=== PATIENT | female | born 1970 | race Two or more races ===

== ENCOUNTER 2024-07-29 15:12 | Emergency (ER) | payer MEDICAID, SELFPAY ==
[2024-07-29 15:15] VITALS: BP 195/101; PULSE 98; RESP 18; TEMP 36.8; O2SAT 98
--- NOTE | 2024-07-29 15:17 | XR_ITS ---
Examination: CT brain head without contrast. 2-D sagittal coronal reconstructions Date and time of exam:July 29, 2024 1838 hours INDICATIONS: Onset headaches today CTDI: vol (mGy):46.2 DLP: (mGycm):870 Technique: Multiple CT axial sections of the brain have been obtained, 5 mm slice thickness. Contrast has not been administered. 2-D sagittal, coronal reconstructions have been obtained Low dose protocols were performed. One or more of the following dose reduction techniques were used; automated exposure control, adjustment of the mA and/or KV according to patient size, use of iterative reconstruction technique. Findings: No significant ventricular enlargement. Intra-axial or extra-axial hemorrhage density is not seen. No mass effect or midline shift Basal cisterns are not remarkable. Fourth ventricle is midline. Cranial vault intact. Impression: Negative for acute hemorrhage, mass effect or midline shift Advise clinical correlation follow-up accordingly
--- NOTE | 2024-07-29 15:18 | PD.EDADULT ---
ED General RME/HPI General Chief complaint: Headache Stated complaint: HEADACHE Time Seen by Provider: 07/29/24 15:17 Arrival date/time: 07/29/24 15:12 CC: Headache HPI patient presents the ER via EMS from the urgent care center with a headache that is in the back of her head rating down the back of her neck. Patient denies fever nausea vomiting chest pain shortness of breath difficulty breathing. EMS reports stable vital signs. Related Data Previous Rx's ?Medication ?Instructions ?Recorded naproxen 500 mg tablet 500 mg PO BID PRN pain #30 tabs 06/06/23 ondansetron 4 mg disintegrating 4 mg PO Q8H PRN nausea and 06/06/23 tablet vomiting #30 tabs cyclobenzaprine 10 mg tablet 10 mg PO HS #10 tabs 07/29/24 Allergies Allergy/AdvReac Type Severity Reaction Status Date / Time No Known Allergies Allergy Verified 06/06/23 02:12 Past Medical History Social History SMOKING STATUS: Never smoker ED Exam Narrative Physical exam: [General: Mild discomfort but not in any acute distress Head normocephalic HEENT: Eyes pupils are PERRLA EOMs intact no nystagmus mouth pink moist membranes uvula is midline tongue is not deviated swallow symmetrical phonation is normal. Nose: No rhinorrhea epistaxis. All other subsystems of HEENT are within acceptable limits Neck is supple, no tenderness to palpation, good rotation flexion and extension. Chest equal chest rise nontender to palpation Respiratory: Clear to auscultation no wheezes crackles or rubs CV: Rate rhythm is regular no murmurs rubs or clicks Abdomen is soft nontender no masses positive bowel sounds all 4 quadrants Back: No CVA tenderness no spinous process tenderness from cervical spine thoracic and lumbar spine Skin: Intact no petechiae rash induration ulceration or crepitus Extremities: Moving all extremity against resistance cap refill less than 2 seconds neurosensory intact Neuro: Awake alert oriented x3 Glascow coma 15 no focal deficits] cranial nerves II through XII are grossly intact. Course Quality Measures none Orders Category Date Time Status CT head/brain wo con Stat Exams 07/29/24 15:17 Completed CBC Stat Lab 07/29/24 15:47 Completed Comprehensive Metabolic Panel Stat Lab 07/29/24 15:47 Completed Drug Screen,Urine Stat Lab 07/29/24 17:40 Completed LDH (Lactate Dehydrogenase) Stat Lab 07/29/24 15:47 Completed Magnesium Stat Lab 07/29/24 15:47 Completed Partial Thromboplastin Time Stat Lab 07/29/24 15:47 Completed Prothrombin Time with INR Stat Lab 07/29/24 15:47 Completed Urinalysis Stat Lab 07/29/24 17:40 Completed KCL 10% Liq UDC 15 ML Med 07/29/24 17:12 Discontinued 40 meq GT X1 ONE Ketorolac Inj [Toradol Inj] Med 07/29/24 18:54 Discontinued 15 mg IVP X1 ONE Vital Signs Vital signs: Vital Signs Temperature 98.3 F 07/29/24 15:15 Pulse Rate 98 07/29/24 15:15 Respiratory Rate 18 07/29/24 15:15 Blood Pressure 195/101 H 07/29/24 15:15 Pulse Oximetry (%) 98 07/29/24 15:15 Oxygen Delivery Method Room Air 07/29/24 15:15 [facility] Patient data External records reviewed:: [facility] previous records and EMS form Clinical information provided by:: patient and EMS Social determinants that could affect healthcare access:: none Patient has the following chronic illnesses:: None How is presenting disease/condition affected by chronic disease/condition?: uneffected by Evaluation data The following diagnostics were reviewed and interpreted by me:: lab results and radiology exam(s) Lab and/or radiology exams considered but not ordered:: CT of the head is negative as interpreted by me read by radiology CBC showed no acute leukocytosis anemia thrombocytopenia CMP shows no acute electrolyte imbalance or renal impairment transaminitis or T. bili elevation. Interpretation Summary: I suspect given the patient's clinical presentation and examination this is a tension headache patient is advised to follow-up with a primary care provider put the patient on muscle relaxants. Medications Medications considered but not ordered:: None Medication administrations:: Medication Administration History Discontinued Medications Ketorolac Tromethamine (Ketorolac Inj 30 Mg/Ml Vial) 15 mg IVP X1 ONE Stop: 07/29/24 18:55 Last Admin: 07/29/24 19:26 Dose: 15 mg Documented By: KG Potassium Chloride (Potassium Chloride 10% 20 Meq/15 Ml Udc) 40 meq GT X1 ONE Stop: 07/29/24 17:13 Last Admin: 07/29/24 17:31 Dose: 40 meq Documented By: ED None Consultations Consultation(s) initiated? (list below): No Diagnosis Differential Diagnosis ED Complaint MDM: Tension headache complex headache cluster headache Most likely diagnosis given after review of the tests above:: Tension headache Admission Indicated Admission indicated?: not indicated Explain why admission is indicated or not indicated:: Stable for outpatient follow-up Admission Request Was there a request for admission?: No Disposition Plan Disposition Plan: Discharge Discharge Attestation Discharge Attestation: The patient and all family members were given an opportunity to ask questions and understood the discharge instructions. Discharge instructions specifically effects, indications for sooner follow up or return to the emergency department, and the expected course of current diagnosis. Patient condition: Stable Medical Decision Making Differential Diagnosis Differential Diagnosis: Tension headache complex headache cluster headache Lab Data 07/29/24 15:47 07/29/24 15:47 Labs: Lab Results 07/29/24 07/29/24 Range/Units 15:47 17:40 WBC 8.1 (3.6-11.0) Thou/mm3 RBC 4.27 (4.00-5.20) Miln/mm3 Hgb 13.7 (12.0-16.0) g/dL Hct 38.5 (36.0-46.0) % MCV 90 (80-100) fL MCH 32.1 (25.0-35.0) pg MCHC 35.6 (31.0-37.0) g/dl RDW Std Deviation 40.9 (36.4-46.3) fL Plt Count 236 (140-440) Thou/mm3 Neut % (Auto) 54 (37-80) % Lymph % (Auto) 39 (10-50) % [place] % (Auto) 6 (0-12) % Eos % (Auto) 1 (0-10) % Baso % (Auto) 1 (0-2.5) % Neut # (Auto) 4.3 (1.8-7.7) Thou/mm3 Lymph # (Auto) 3.1 (1.0-4.8) Thou/mm3 [place] # (Auto) 0.5 (0.0-0.8) Thou/mm3 Eos # (Auto) 0.1 (0.0-0.5) Thou/mm3 Baso # (Auto) 0.1 (0.0-0.2) Thou/mm3 Immature Gran # (Auto) 0.02 H (0.00-0.00) Thou/mm3 Absolute Nucleated RBC 0.00 (0.00-0.00) Thou/mm3 Immature Gran % 0 (0-0) % Nucleated RBC % 0 (0) /100 WBC PT 10.9 (9.0-12.2) Seconds INR 1.0 (0.9-1.3) APTT 28.5 (22.0-36.0) Seconds Sodium 133 L (136-145) mMol/L Potassium 3.0 L (3.4-5.1) mMol/L Chloride 96 L (98-107) mMol/L Carbon Dioxide 28.7 (20.0-31.0) mMol/L Anion Gap 8 (7-16) BUN 7 L (9-23) mg/dL Creatinine 0.7 (0.6-1.3) mg/dL Estim Creat Clear Calc 83.5 (>60) mL/min eGFR > 60 (60 - ) See Note BUN/Creatinine Ratio 10 L (12-20) Ratio Glucose 109 H (74-106) mg/dL Calculated Osmolality 265 L (275-295) Calcium 9.7 (8.3-10.6) mg/dL Corrected Calcium 9.7 (8.5-10.1) mg/dL Magnesium 1.8 (1.6-2.6) mg/dL Total Bilirubin 0.6 (0.3-1.2) mg/dL AST 21 (0-34) U/L ALT 11 (10-49) U/L Alkaline Phosphatase 75 (46-116) U/L Lactate Dehydrogenase 232 (120-246) U/L Total Protein 8.0 (5.7-8.2) gm/dL Albumin 4.6 (3.5-5.0) gm/dL Globulin 3.4 (2.3-3.5) gm/dL Albumin/Globulin Ratio 1.4 (1.2-2.2) Ur Collection Type Clean Catch Urine Color Colorless A (Lt Yel-Yel) Urine Clarity Clear (Clear/Hazy) Urine pH 7.0 (5.0-7.0) Ur Specific [place] 1.006 (1.001-1.035) Urine Protein Negative (Neg - Trace) Urine Glucose (UA) Negative (Negative) Urine Ketones Negative (Negative) Urine Blood Negative (Negative) Urine Nitrite Negative (Negative) Urine Bilirubin Negative (Negative) Urine Urobilinogen (Auto) Negative (0.0-1.0) mg/dL Ur Leukocyte Esterase Negative (Negative) Urine RBC 1 (0-3) /hpf Urine WBC < 1 (0-5) /hpf Ur Squamous Epith Cells < 1 (0-5) /hpf Urine Bacteria None (None) Urine Opiates Screen Negative (Negative) Urine Fentanyl Screen Negative (Negative) Ur Barbiturates Screen Negative (Negative) U Amphetamin/Meth Scrn Negative (Negative) U Benzodiazepines Scrn Negative (Negative) U Cocaine Metab Screen Negative (Negative) U Marijuana (THC) Screen Negative (Negative) Discharge Plan Plan Patient Disposition: HOME (Self Care) Patient condition on transfer: Stable Prescriptions/Referrals Prescriptions/Med Rec: New cyclobenzaprine 10 mg tablet 10 mg PO HS Qty: 10 0RF No Action naproxen 500 mg tablet 500 mg PO BID PRN (Reason: pain) Qty: 30 0RF ondansetron 4 mg tablet,disintegrating 4 mg PO Q8H PRN (Reason: nausea and vomiting) Qty: 30 0RF Referrals: Sheila Perez FNP [Primary Care Provider] - In 1 week Problem List Clinical Impression: Tension headache Patient/Caregiver Discharge Instructions Education Materials: ED Headache, Tension Print Language: Nauruan Stand Alone Forms: Cassidy Award Info., Patient Portal Info Letter PA/CONTINUOUS PICKLING LINE PICKLER HELPER Supervising Physician DENA/CONTINUOUS PICKLING LINE PICKLER HELPER Supervising Physician: Aki Suero ENP
[2024-07-29 15:50] VITALS: PULSE 105; RESP 18; O2SAT 99; BMI 27.1
[2024-07-29 16:10] LABS: Basophils # (Auto) 0.1 Thou/mm3 (0.0-0.2); Basophils % (Auto) 1 % (0-2.5); Eosinophils # (Auto) 0.1 Thou/mm3 (0.0-0.5); Eosinophils % (Auto) 1 % (0-10); Hematocrit 38.5 % (36.0-46.0); Hemoglobin 13.7 g/dL (12.0-16.0); Immature Granulocytes % (Auto) 0 % (0-0); Immature Granulocytes Auto 0.02 Thou/mm3 (0.00-0.00); Lymphocytes # (Auto) 3.1 Thou/mm3 (1.0-4.8); Lymphocytes % (Auto) 39 % (10-50); Mean Corpuscular HGB Conc 35.6 g/dl (31.0-37.0); Mean Corpuscular Hemoglobin 32.1 pg (25.0-35.0); Mean Corpuscular Volume 90 fL (80-100); Monocytes # (Auto) 0.5 Thou/mm3 (0.0-0.8); Monocytes % (Auto) 6 % (0-12); Neutrophils # (Auto) 4.3 Thou/mm3 (1.8-7.7); Neutrophils % (Auto) 54 % (37-80); Nucleated Red Blood Cell % 0 /100 WBC (0); Platelet Count 236 Thou/mm3 (140-440); RDW Standard Deviation 40.9 fL (36.4-46.3); Red Blood Count 4.27 Miln/mm3 (4.00-5.20); White Blood Count 8.1 Thou/mm3 (3.6-11.0)
[2024-07-29 16:19] LABS: Partial Thromboplastin Time 28.5 Seconds (22.0-36.0); Prothrombin Time 10.9 Seconds (9.0-12.2)
[2024-07-29 16:34] VITALS: BP 187/96; PULSE 98; RESP 17; TEMP 36.6; O2SAT 96
--- NOTE | 2024-07-29 16:50 | PC.NURSE ---
Pt. here from home to room 10, pt.'s son is bedside, pt. states she has a headache and pt. grabs the back of her neck, since last night, pt. states she takes hydrochlorothiazide 25 mg for her high blood pressure but pt. states she missed a dose yesterday. Pt. states she has nausea now and was dizzy yesterday. Pt. denies any vomiting. Pt. denies any fall.
[2024-07-29 16:56] LABS: Alanine Aminotransferase 11 U/L (10-49); Albumin, Serum 4.6 gm/dL (3.5-5.0); Albumin/Globulin Ratio 1.4 (1.2-2.2); Alkaline Phosphatase 75 U/L (46-116); Anion Gap 8 (7-16); Aspartate Amino Transferase 21 U/L (0-34); BUN/Creatinine Ratio 10 Ratio (12-20); Bilirubin,Total 0.6 mg/dL (0.3-1.2); Blood Urea Nitrogen 7 mg/dL (9-23); Calcium 9.7 mg/dL (8.3-10.6); Calcium (Corrected) 9.7 mg/dL (8.5-10.1); Carbon Dioxide 28.7 mMol/L (20.0-31.0); Chloride 96 mMol/L (98-107); Creatinine (Component) 0.7 mg/dL (0.6-1.3); Estimated Creatinine Clearance 83.5 mL/min (>60); Globulin 3.4 gm/dL (2.3-3.5); Glucose 109 mg/dL (74-106); Magnesium 1.8 mg/dL (1.6-2.6); Osmolality,Calculated 265 (275-295); Sodium 133 mMol/L (136-145); eGFR > 60 See Note
[2024-07-29] MEDS: POTASSIUM CHLORIDE 10% 20 MEQ/15 ML UDC 40 MEQ GT (17:31)
[2024-07-29 17:55] LABS: Collection Type, Urine Clean Catch
[2024-07-29 18:01] LABS: Bilirubin,Urine Negative (Negative); Blood,Urine Negative (Negative); Clarity,Urine Clear (Clear/Hazy); Color,Urine Colorless (Lt Yel-Yel); Glucose, Urine Negative (Negative); Ketones,Urine Negative (Negative); Leukocyte Esterase,Urine Negative (Negative); Nitrite,Urine Negative (Negative); Protein,Urine Negative (Neg - Trace); RBC,Urine 1 /hpf (0-3); Specific Gravity,Urine 1.006 (1.001-1.035); Squamous Epithelial Cell,Urine < 1 /hpf (0-5); Urobilinogen,Urine Negative mg/dL (0.0-1.0); WBC,Urine < 1 /hpf (0-5)
[2024-07-29 18:07] LABS: Amphetamine/Methamp Scrn,U Negative (Negative); Barbiturate Screen,Urine Negative (Negative); Benzodiazepines Screen,Urine Negative (Negative); Benzoylecgonine Screen, Ur Negative (Negative); Fentanyl Screen,Urine Negative (Negative); Opiate Screen,Urine Negative (Negative); THC Screen,Urine Negative (Negative)
[2024-07-29 18:08] VITALS: BP 180/102; PULSE 97; RESP 16; TEMP 36.8; O2SAT 99
[2024-07-29 18:19] LABS: LDH (Lactate Dehydrogenase) 232 U/L (120-246)
[2024-07-29] MEDS: KETOROLAC INJ 30 MG/ML VIAL 15 MG IVP (19:26)
[2024-07-29 19:32] VITALS: BP 157/93; PULSE 96; RESP 18; O2SAT 96
[2024-07-29 20:11] VITALS: BP 141/82; PULSE 77; RESP 19; O2SAT 95
== END 2024-07-29 20:11 | disposition home or self-care (01) ==
PROVIDERS: Registered Nurse General Practice; Emergency Provider Emergency Medicine; PCP Nurse Practitioner Family
DX: G44.209 Tension-type headache, unspecified, not intractable (principal)
CPT/HCPCS: 36415; 70450; 80053; 80307; 81001; 83615; 83735; 85025; 85610; 85730; 96374; 99284; J1885; A9270

== ENCOUNTER 2024-07-31 18:31 | Emergency (ER) | payer MEDICAID, SELFPAY ==
[2024-07-31 18:56] VITALS: BP 182/106; PULSE 110; RESP 16; TEMP 36.8; O2SAT 98; BMI 27.1
--- NOTE | 2024-07-31 19:11 | PD.EDHA ---
ED Headache RME/HPI General Chief Complaint: Headache Stated Complaint: SEVERE HEADACHE, NAUSEA, HIGH BP Time Seen by Provider: 07/31/24 18:59 Source: patient Arrival date/time: 07/31/24 18:31 53-year-old female with a history of hypertension presents to the emergency room with a chief complaint of a headache, nausea, high blood pressure. Mode of arrival: ambulatory Limitations: no limitations Related Data Previous Rx's ?Medication ?Instructions ?Recorded naproxen 500 mg tablet 500 mg PO BID PRN pain #30 tabs 06/06/23 ondansetron 4 mg disintegrating 4 mg PO Q8H PRN nausea and 06/06/23 tablet vomiting #30 tabs cyclobenzaprine 10 mg tablet 10 mg PO HS #10 tabs 07/29/24 Allergies Allergy/AdvReac Type Severity Reaction Status Date / Time No Known Allergies Allergy Verified 07/31/24 18:32 Review of Systems Review of Systems Systems Reviewed: All systems reviewed, normal except as documented Constitutional Constitutional: Reports system reviewed and no additional complaints, except as documented, Denies fatigue, Denies fever(s), Reports headache(s) and Denies weakness Eyes Eyes: Reports system reviewed and no additional complaints, except as documented, Denies blurry vision and Denies change in vision ENT Ears, Nose, Mouth, and Throat: Reports system reviewed and no additional complaints, except as documented, Denies otalgia, Reports headache(s), Denies nasal congestion, Denies throat swelling and Denies vertigo Cardiovascular Cardiovascular: Reports system reviewed and no additional complaints, except as documented, Denies chest pain, Denies dyspnea and Denies dyspnea on exertion Respiratory Respiratory: Reports system reviewed and no additional complaints, except as documented, Denies chest congestion, Denies cough, Denies dyspnea, Denies dyspnea on exertion and Denies wheezing Gastrointestinal Gastrointestinal: Reports system reviewed and no additional complaints, except as documented, Denies abdominal pain, Denies cramping, Denies nausea and Denies vomiting Genitourinary Genitourinary: Reports system reviewed and no additional complaints, except as documented Musculoskeletal Musculoskeletal: Reports system reviewed and no additional complaints, except as documented and Denies back pain Integumentary/Breasts Skin/Breast: Reports system reviewed and no additional complaints, except as documented and Denies wounds Neurologic Neurologic: Reports system reviewed and no additional complaints, except as documented, Denies confusion, Reports headache(s), Denies lack of coordination, Denies vertigo and Denies weakness Psychiatric Psychiatric: Reports system reviewed and no additional complaints, except as documented, Denies anxiety, Denies confusion, Denies depression, Denies paranoia, Denies suicidal ideation and Denies tactile hallucinations Endocrine Endocrine: Reports system reviewed and no additional complaints, except as documented and Denies fatigue Hematologic/Lymphatic Hematologic/Lymphatic: Reports system reviewed and no additional complaints, except as documented and Denies lymphadenopathy Allergic/Immunologic Allergic/Immunologic: Reports system reviewed and no additional complaints, except as documented, Denies throat swelling, Denies urticaria and Denies wheezing Past Medical History Past Medical History CARDIAC: Negative Congestive Heart Failure RESPIRATORY: Negative Chronic Obstructive Pulmonary Disease (COPD) GENITOURINARY: Negative Renal Disease ENDOCRINE: Negative Diabetes Mellitus Type 1 or Diabetes Mellitus Type 2 Social History SMOKING STATUS: Never smoker ED Exam General Limitations: Present no limitations General appearance: Present alert and in no apparent distress Head Head exam: Present atraumatic Eye Eye exam: Present normal appearance, PERRL and EOMI ENT ENT exam: Present normal exam, normal oropharynx and mucous membranes moist Neck Neck exam: Present normal inspection, full ROM and trachea midline Chest Chest inspection: Present normal inspection and symmetric chest wall rise Respiratory Respiratory exam: Present normal lung sounds bilaterally Cardiovascular Cardiovascular exam: Present regular rate, normal rhythm and normal heart sounds Abdominal Exam Abdominal exam: Present soft and normal bowel sounds Extremities Exam Extremities exam: Present normal inspection and full ROM Back Exam Back exam: Present normal inspection and full ROM Neurological Exam Neurological exam: Present alert, oriented X3, CN II-XII intact, normal gait and reflexes normal Expanded Neurological Exam Patient oriented to: Present person, place and time Speech: Present fluid speech Cranial nerves: Normal: EOM function (II, III, IV, ), facial sensation (V) and facial palsy (VII) Cerebellar function: Present normal gait Motor strength - LUE: 5/5 Motor strength - RUE: 5/5 Motor strength - LLE: 5/5 Motor strength - RLE: 5/5 Coma scale eye opening: spontaneous Coma scale motor response: obeys commands Coma scale verbal response: oriented Coma scale total: 15 Psychiatric Psychiatric exam: Present normal affect and normal mood Skin Skin exam: Present warm, dry, intact and normal color Course Quality Measures none Orders Category Date Time Status CBC Stat Lab 07/31/24 19:44 Completed CMP [Comprehensive Metabolic Panel] Stat Lab 07/31/24 19:44 Completed Ketorolac Inj [Toradol Inj] Med 07/31/24 19:06 Discontinued 30 mg IM X1 ONE SUMAtriptan INJ [Imitrex Inj] Med 07/31/24 19:06 Discontinued 6 mg SC X1 ONE cloNIDine HCL [Catapres] Med 07/31/24 19:06 Discontinued 0.2 mg PO X1 ONE Vital Signs Vital signs: Vital Signs Temperature 98.3 F 07/31/24 18:56 Pulse Rate 110 H 07/31/24 18:56 Respiratory Rate 16 07/31/24 18:56 Blood Pressure 182/106 H 07/31/24 18:56 Pulse Oximetry (%) 98 07/31/24 18:56 Oxygen Delivery Method Room Air 07/31/24 18:56 O2 saturation 98% within normal limits Headache MDM Narrative MDM Narrative:: 53-year-old female with a history of hypertension presents to the emergency room with a chief complaint of a headache, nausea, high blood pressure. Clinically the patient appears nontoxic and in no apparent distress. Physical examination shows a normal neurological exam pupils are PERRLA EOMs are intact the patient has a normal steady gait cranial reflexes are intact patient is a GCS of 15 AAOx4. Patient recently came in for the same complaint and had a head CT which was negative for acute hemorrhage mass effect or midline shift. Medication was given to help with migraines as well as to help with her high blood pressure. Patient was reevaluated in 45 minutes with significant improvement of her headaches as well as her blood pressure. patient was educated to follow-up with her primary care provider and return to the emergency room for any evidence of worsening signs or symptoms Patient data External records reviewed:: [facility] previous records Clinical information provided by:: patient Social determinants that could affect healthcare access:: none Patient has the following chronic illnesses:: Hypertension How is presenting disease/condition affected by chronic disease/condition?: exacerbated by Evaluation data The following diagnostics were reviewed and interpreted by me:: lab results and radiology exam(s) Lab and/or radiology exams considered but not ordered:: Labs and radiology exams considered and ordered Interpretation Summary: N/A Medications / Prescriptions Medications or Prescriptions considered but not ordered:: Medication given Medication administrations:: Medication Administration History Discontinued Medications Clonidine (Clonidine Hcl 0.1 Mg Tablet) 0.2 mg PO X1 ONE Stop: 07/31/24 19:07 Last Admin: 07/31/24 19:15 Dose: 0.2 mg Documented By: SHAUNA Ketorolac Tromethamine (Ketorolac Inj 60 Mg/2 Ml Vial) 30 mg IM X1 ONE Stop: 07/31/24 19:07 Last Admin: 07/31/24 19:14 Dose: 30 mg Documented By: SHAUNA Sumatriptan Succinate (Sumatriptan Inj 6 Mg/0.5 Ml Vial) 6 mg SC X1 ONE Stop: 07/31/24 19:07 Last Admin: 07/31/24 19:13 Dose: 6 mg Documented By: SHAUNA Medication given Consultations Consultation(s) initiated? (list below): No Diagnosis Differential diagnosis headache: migraine, tension headache, headache and sinusitis Most likely diagnosis given after review of the tests above:: Tension headache Admission Indicated Admission indicated?: not indicated Admission Request Was there a request for admission?: No Disposition Plan Disposition Plan: Discharge Discharge Attestation Discharge Attestation: The patient and all family members were given an opportunity to ask questions and understood the discharge instructions. Discharge instructions specifically effects, indications for sooner follow up or return to the emergency department, and the expected course of current diagnosis. Patient condition: Stable Discharge Plan Plan Patient Disposition: HOME (Self Care) Disposition Comment: Stable Prescriptions/Referrals Prescriptions/Med Rec: No Action naproxen 500 mg tablet 500 mg PO BID PRN (Reason: pain) Qty: 30 0RF ondansetron 4 mg tablet,disintegrating 4 mg PO Q8H PRN (Reason: nausea and vomiting) Qty: 30 0RF cyclobenzaprine 10 mg tablet 10 mg PO HS Qty: 10 0RF Referrals: Sheila Perez FNP [Primary Care Provider] - In 1 week Problem List Clinical Impression: Tension headache Patient/Caregiver Discharge Instructions Education Materials: ED Headache, Tension Additional Instructions: Gale un seguimiento con lopez proveedor de atenci?n primaria en las pr?ximas 24 a 48 horas. El medicamento fue enviado a lopez farmacia por favor rec?jalo y t?andres judson se indica. Si hay evidencia de signos o s?ntomas que empeoran, regrese a la daphney de emergencias de inmediato. Print Language: Swiss Stand Alone Forms: Cassidy Award Info., Patient Portal Info Letter PA/GRAPHITE MILL OPERATOR Supervising Physician PA/GRAPHITE MILL OPERATOR Supervising Physician: Dr. Leal
[2024-07-31] MEDS: SUMAtriptan INJ 6 MG/0.5 ML VIAL SC (19:13)
[2024-07-31] MEDS: KETOROLAC INJ 60 MG/2 ML VIAL 30 MG IM (19:14)
[2024-07-31 19:15] VITALS: BP 182/106; PULSE 110
[2024-07-31] MEDS: cloNIDine HCL 0.1 MG TABLET 0.2 MG PO (19:15)
[2024-07-31 20:10] LABS: Basophils # (Auto) 0.1 Thou/mm3 (0.0-0.2); Basophils % (Auto) 1 % (0-2.5); Eosinophils # (Auto) 0.1 Thou/mm3 (0.0-0.5); Eosinophils % (Auto) 1 % (0-10); Hematocrit 36.4 % (36.0-46.0); Hemoglobin 13.1 g/dL (12.0-16.0); Immature Granulocytes % (Auto) 0 % (0-0); Immature Granulocytes Auto 0.02 Thou/mm3 (0.00-0.00); Lymphocytes # (Auto) 2.3 Thou/mm3 (1.0-4.8); Lymphocytes % (Auto) 33 % (10-50); Mean Corpuscular Hemoglobin 31.8 pg (25.0-35.0); Mean Corpuscular Volume 88 fL (80-100); Monocytes # (Auto) 0.6 Thou/mm3 (0.0-0.8); Monocytes % (Auto) 8 % (0-12); Neutrophils % (Auto) 57 % (37-80); Nucleated Red Blood Cell % 0 /100 WBC (0); Platelet Count 233 Thou/mm3 (140-440); RDW Standard Deviation 39.1 fL (36.4-46.3); Red Blood Count 4.12 Miln/mm3 (4.00-5.20)
[2024-07-31 20:31] LABS: Alanine Aminotransferase 12 U/L (10-49); Albumin, Serum 4.5 gm/dL (3.5-5.0); Albumin/Globulin Ratio 1.5 (1.2-2.2); Alkaline Phosphatase 67 U/L (46-116); Anion Gap 6 (7-16); Aspartate Amino Transferase 19 U/L (0-34); BUN/Creatinine Ratio 13 Ratio (12-20); Bilirubin,Total 0.5 mg/dL (0.3-1.2); Blood Urea Nitrogen 9 mg/dL (9-23); Calcium 9.6 mg/dL (8.3-10.6); Calcium (Corrected) 9.6 mg/dL (8.5-10.1); Chloride 94 mMol/L (98-107); Creatinine (Component) 0.7 mg/dL (0.6-1.3); Estimated Creatinine Clearance 83.5 mL/min (>60); Globulin 3.1 gm/dL (2.3-3.5); Glucose 95 mg/dL (74-106); Osmolality,Calculated 261 (275-295); Potassium 3.8 mMol/L (3.4-5.1); Sodium 131 mMol/L (136-145); Total Protein 7.6 gm/dL (5.7-8.2); eGFR > 60 See Note
[2024-07-31 21:05] VITALS: BP 107/71; PULSE 78; RESP 16; TEMP 36.7; O2SAT 96
== END 2024-07-31 21:42 | disposition home or self-care (01) ==
PROVIDERS: Nurse Practitioner Family; Emergency Provider Emergency Medicine; PCP Nurse Practitioner Family
DX: G44.209 Tension-type headache, unspecified, not intractable (principal)
CPT/HCPCS: 36415; 80053; 85025; 96372; 99283; J1885; J3030; A9270

== ENCOUNTER 2024-09-21 14:54 | Emergency (ER) | payer MEDICAID, SELFPAY ==
[2024-09-21] VITALS (9 sets, daily range): BP systolic 124–206; BP diastolic 77–109; PULSE 90–163; RESP 15–18; TEMP 36.7–37; O2SAT 96–99; BMI 25.7
--- NOTE | 2024-09-21 15:07 | XR_ITS ---
Examination: CT brain head without contrast. 2-D sagittal coronal reconstructions Date and time of exam:September 21, 2024 1517 hrs. Indications: Onset headaches today CTDI: vol (mGy):46.9 DLP: (mGycm):857 Technique: Multiple CT axial sections of the brain have been obtained, 5 mm slice thickness. Contrast has not been administered. 2-D sagittal, coronal reconstructions have been obtained Low dose protocols were performed. One or more of the following dose reduction techniques were used; automated exposure control, adjustment of the mA and/or KV according to patient size, use of iterative reconstruction technique. Findings: No significant ventricular enlargement. Intra-axial or extra-axial hemorrhage density is not seen. No mass effect or midline shift Basal cisterns are not remarkable. Fourth ventricle is midline. Cranial vault intact. Impression: Negative for acute hemorrhage, mass effect or midline shift
--- NOTE | 2024-09-21 15:07 | EKG_ITS ---
[facility] Test Date: 2024-09-21 Pat Name: RONA RODRIGUEZ Department: Room: - Gender: Female Pole Setter: : 1970 Requested By: Jeff Abreu (LIDIA) Order Number: [id number] Reading MD: Jeff Abreu (CITY SOLICITOR) Measurements Intervals [place] Rate: 97 P: 57 MA: 179 QRS: 8 QRSD: 82 T: 13 QT: 304 QTc: 386 Interpretive Statements SINUS RHYTHM NONSPECIFIC ST & T-WAVE ABNORMALITY No previous ECG available for comparison /store/S0/[id number]/ecg/[id number].pdf
--- NOTE | 2024-09-21 15:07 | XR_ITS ---
Examination: PA lateral chest 2 views Technique: Upright PA lateral chest 2 views Exam date and time: September 21, 2024 1525 hrs. Indications: Onset chest pain today. Findings: Minimal prominence left ventricle No pneumonia or pulmonary edema Moderate osteopenia Impression: No pneumonia or pulmonary edema
--- NOTE | 2024-09-21 15:08 | PD.EDRME ---
Rapid Medical Screening Exam RME Arrival date/time: 09/21/24 14:54 53-year-old female presents to the emergency department complaints of headache and high blood pressure as well as chest pain Chief Complaint: Headache Vital signs: Vital Signs Temperature 98.5 F 09/21/24 15:01 Respiratory Rate 18 09/21/24 15:01 Blood Pressure 206/109 H 09/21/24 15:01 Pulse Oximetry (%) 99 09/21/24 15:01 Oxygen Delivery Method Room Air 09/21/24 15:01
[2024-09-21] MEDS: NIFEdipine 10 MG CAPSULE 20 MG PO (15:14)
--- NOTE | 2024-09-21 15:50 | PC.NURSE ---
PT COMING IN FROM ED LOBBY WITH C/O HEADACHE AND NAUSEA X4 DAYS; PT ALSO REPORTS FEELING A FAST HEARTBEAT. UPON CONNECTION TO MONITOR, PT'S HR IN 130'S TO 140'S. DR. ALVARADO AT BEDSIDE. PT HAS PMH OF HYPERTENSION. PT A&OX4, GCS 15.
--- NOTE | 2024-09-21 15:50 | PD.EDHA ---
ED Headache RME/HPI General Chief Complaint: Headache Stated Complaint: 04/25 Headache, dizziness Time Seen by Provider: 09/21/24 15:19 Arrival date/time: 09/21/24 14:54 RME / HPI RME / HPI Narrative: 09/21/24 14:54 53-year-old female presents to the emergency department complaints of headache and high blood pressure as well as chest pain DR. ALVARADO MAIN ED EVALUATION: 53 year old female with past medical history significant for hypertension presents to the Emergency Department with complaint of Related Data Previous Rx's ?Medication ?Instructions ?Recorded naproxen 500 mg tablet 500 mg PO BID PRN pain #30 tabs 06/06/23 ondansetron 4 mg disintegrating 4 mg PO Q8H PRN nausea and 06/06/23 tablet vomiting #30 tabs cyclobenzaprine 10 mg tablet 10 mg PO HS #10 tabs 07/29/24 Allergies Allergy/AdvReac Type Severity Reaction Status Date / Time No Known Allergies Allergy Verified 07/31/24 18:32 Review of Systems Review of Systems Systems Reviewed: All systems reviewed, normal except as documented Narrative Review of Systems: GEN: No fever, no chills, no weight loss EYES: No discharge, no visual changes, no pain HEENT: No ear pain, no congestion, no sore throat PULM: No shortness of breath, no cough, no congestion CV: No chest pain, no dyspnea on exertion, no palpitations GI: No nausea, no vomiting, no diarrhea, no pain, no constipation : No frequency, no urgency and no dysuria MUSC/SKEL: No joint pain, no back pain SKIN: No rash PSYCH: No hallucinations, no depression HEME/LYMPH: No easy bleeding or bruising tendencies NEURO: No weakness, no headache Past Medical History Past Medical History CARDIAC: Positive Hypertension RESPIRATORY: Negative Chronic Obstructive Pulmonary Disease (COPD) GENITOURINARY: Negative Renal Disease ENDOCRINE: Positive Diabetes Mellitus Type 1 Social History SMOKING STATUS: Never smoker Course Orders Category Date Time Status EKG (ED ONLY) *Do not use* NOW Care 09/21/24 15:[address] head/brain wo con Stat Exams 09/21/24 15:07 Taken EKG (ED Only) Stat Exams 09/21/24 15:07 Draft XR chest 2V Stat Exams 09/21/24 15:07 Taken B-Type Natriuretic Peptide Stat Lab 09/21/24 15:07 Ordered CBC Stat Lab 09/21/24 15:07 Ordered Comprehensive Metabolic Panel Stat Lab 09/21/24 15:07 Ordered Magnesium Stat Lab 09/21/24 15:07 Ordered Partial Thromboplastin Time Stat Lab 09/21/24 15:07 Ordered Prothrombin Time with INR Stat Lab 09/21/24 15:07 Ordered Troponin I Stat Lab 09/21/24 15:07 Ordered NIFEdipine [Procardia] Med 09/21/24 15:07 Discontinued 20 mg PO X1 ONE Vital Signs Vital signs: Vital Signs Temperature 98.5 F 09/21/24 15:01 Respiratory Rate 18 09/21/24 15:01 Blood Pressure 206/109 H 09/21/24 15:01 Pulse Oximetry (%) 99 09/21/24 15:01 Oxygen Delivery Method Room Air 09/21/24 15:01 Headache MDM Narrative MDM Narrative:: Li Burdick am scribing for and in the presence of Dr. Alvarado. Patient data External records reviewed:: [facility] previous records (Reviewed last ED visit dated 07/31/24, discharged with the following: Tension headache) Clinical information provided by:: patient Social determinants that could affect healthcare access:: none Patient has the following chronic illnesses:: hypertension How is presenting disease/condition affected by chronic disease/condition?: exacerbated by Evaluation data The following diagnostics were reviewed and interpreted by me:: lab results, radiology exam(s) and EKG tracing(s) Lab and/or radiology exams considered but not ordered:: none Medications / Prescriptions Medications or Prescriptions considered but not ordered:: none Medication administrations:: Medication Administration History Discontinued Medications Nifedipine (Nifedipine 10 Mg Capsule) 20 mg PO X1 ONE Stop: 09/21/24 15:08 Last Admin: 09/21/24 15:14 Dose: 20 mg Documented By: see above Diagnosis Differential diagnosis headache: migraine, tension headache and other (hypertensive emergency vs urgency) Discharge Plan Prescriptions/Referrals Prescriptions/Med Rec: No Action naproxen 500 mg tablet 500 mg PO BID PRN (Reason: pain) Qty: 30 0RF ondansetron 4 mg tablet,disintegrating 4 mg PO Q8H PRN (Reason: nausea and vomiting) Qty: 30 0RF cyclobenzaprine 10 mg tablet 10 mg PO HS Qty: 10 0RF Patient/Caregiver Discharge Instructions Print Language: Georgian
--- NOTE | 2024-09-21 15:53 | EKG_ITS ---
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
--- NOTE | 2024-09-21 16:03 | PD.EDARRY ---
ED Arrhythmia Palp. RME/HPI General Chief Complaint: Headache Stated Complaint: 04/25 Headache, dizziness Time Seen by Provider: 09/21/24 15:19 Arrival date/time: 09/21/24 14:54 RME / HPI RME / HPI narrative: 09/21/24 14:54 53-year-old female presents to the emergency department complaints of headache and high blood pressure as well as chest pain DR. SULLIVAN MAIN ED EVALUATION: 53 year old female with past medical history significant for hypertension presents to the Emergency Department with complaint of palpitations onset 4 days but worse today. Symptoms are moderate. Associated symptoms include a headache and nausea. No vomiting, diarrhea, or constipation. No recent illness. Patient denies drinking coffee or energy drinks. Patient denies any tobacco, alcohol, or substance use. Related Data Previous Rx's ?Medication ?Instructions ?Recorded naproxen 500 mg tablet 500 mg PO BID PRN pain #30 tabs 06/06/23 ondansetron 4 mg disintegrating 4 mg PO Q8H PRN nausea and 06/06/23 tablet vomiting #30 tabs cyclobenzaprine 10 mg tablet 10 mg PO HS #10 tabs 07/29/24 Allergies Allergy/AdvReac Type Severity Reaction Status Date / Time No Known Allergies Allergy Verified 07/31/24 18:32 Review of Systems Review of Systems Systems Reviewed: All systems reviewed, normal except as documented Narrative Review of Systems: GEN: No fever, no chills, no weight loss EYES: No discharge, no visual changes, no pain HEENT: No ear pain, no congestion, no sore throat PULM: No shortness of breath, no cough, no congestion CV: No chest pain, no dyspnea on exertion, + palpitations GI: + nausea, no vomiting, no diarrhea, no pain, no constipation : No frequency, no urgency and no dysuria MUSC/SKEL: No joint pain, no back pain SKIN: No rash PSYCH: No hallucinations, no depression HEME/LYMPH: No easy bleeding or bruising tendencies NEURO: No weakness, + headache Past Medical History Past Medical History CARDIAC: Positive Hypertension Family History FAMILY HISTORY: Positive Family Cancer (PT'S MOM MOUTH CANCER) Social History SMOKING STATUS: Never smoker SUBSTANCE USE: does not use ALCOHOL: Never ED Exam Narrative Physical exam: GENERAL APPEARANCE: alert and oriented x 4, well-developed, well-nourished, no acute distress VITALS: All vitals were reviewed and the pulse ox is 99% on room air, which is normal according to my interpretation. HEENT: Normocephalic, atraumatic; pupils equal, round, reactive to light; EOMI; mucous membranes pink, moist; oropharynx clear NECK: Supple LUNGS: CTABL; no wheezes, no rales, no rhonchi HEART: Tachycardic, regular rhythm; normal S1, S2; no murmurs ABDOMEN: non distended; normal BS; soft, no tenderness, no guarding, no rebound; no masses, no organomegaly, no hernia BACK: no CVA tenderness EXTREMITIES: atraumatic; no edema NEUROLOGIC: awake; alert and oriented x4; cranial nerves II-XII grossly intact; no focal sensory or motor deficits PSYCHIATRIC: appropriate mood and affect SKIN: warm, dry, normal color; no rashes Course Course Course Narrative: 1800: Patient was signed out to Dr. Pedersen. Past medical, surgical, social and family history reviewed. Vitals and home medications reviewed. Results and treatment plan discussed. They will assume the care of the patient at this time and will follow the patient. Quality Measures none Orders Category Date Time Status EKG (ED ONLY) *Do not use* NOW Care 09/21/24 15:07 Completed EKG (ED ONLY) *Do not use* NOW Care 09/21/24 15:[address] head/brain wo con Stat Exams 09/21/24 15:07 Taken EKG (ED Only) Stat Exams 09/21/24 15:07 Draft EKG (ED Only) Stat Exams 09/21/24 15:53 Draft XR chest 2V Stat Exams 09/21/24 15:07 Taken B-Type Natriuretic Peptide Stat Lab 09/21/24 15:50 Received CBC Stat Lab 09/21/24 15:50 Received Comprehensive Metabolic Panel Stat Lab 09/21/24 15:50 Received Magnesium Stat Lab 09/21/24 15:50 Received Partial Thromboplastin Time Stat Lab 09/21/24 15:50 Received Prothrombin Time with INR Stat Lab 09/21/24 15:50 Received Troponin I Stat Lab 09/21/24 15:50 Received NIFEdipine [Procardia] Med 09/21/24 15:07 Discontinued 20 mg PO X1 ONE Vital Signs Vital signs: Vital Signs Temperature 98.5 F 09/21/24 15:01 Respiratory Rate 18 03/08/25 15:01 Blood Pressure 206/109 H 09/21/24 15:01 Pulse Oximetry (%) 99 09/21/24 15:01 Oxygen Delivery Method Room Air 09/21/24 15:01 Procedures -ED EKG Interpretation #1: Date of EK09/21/24 Time of EK:59 Rate: 136 Interpretation: Interpreted by me Additional EKG comment: sinus tachycardia, rate 136, no acute ischemic changes #2: Date of EK09/21/24 Time of EK:13 Rate: 132 Interpretation: Interpreted by me Additional EKG comment: sinus tachycardia, rate 132, no acute ischemic changes Arrhythmia/Palpitations MDM Narrative MDM Narrative:: I, Li Nguyen, dustin scribing for and in the presence of Dr. Sullivan. Patient data External records reviewed:: [facility] previous records (Reviewed last ED visit dated 07/31/24, discharged with the following: Tension headache) Clinical information provided by:: patient Social determinants that could affect healthcare access:: none Patient has the following chronic illnesses:: hypertension How is presenting disease/condition affected by chronic disease/condition?: exacerbated by Evaluation data The following diagnostics were reviewed and interpreted by me:: lab results, radiology exam(s) and EKG tracing(s) Lab and/or radiology exams considered but not ordered:: none Interpretation Summary: EKG#1: EKG at 1559 hours. Interpreted by me: sinus tachycardia, rate 136, no acute ischemic changes EKG#2: EKG at 1613 hours. Interpreted by me: sinus tachycardia, rate 132, no acute ischemic changes Chest x-ray 2V: my interpretation shows mild vascular congestion, no cardiomegaly RADIOLOGY REPORTS [facility] [address] [place] [address] [employer] Preliminary Report Draft Patient: RONA RODRIGUEZ Med. Record#: [id number] Birthdate: 1970 Age/Sex: 53 / F Location: [facility] Attending Dr: Ordering Physician: Date of Service: Procedure(s): Accession Number(s): cc: ~ CT scan of the head without intravenous contrast (axial sections with sagittal and coronal reformats). September 21, 2024 1517 hours Clinical History: headache Findings: No evidence of intracranial hemorrhage, mass effect or midline shift. The ventricles and CSF spaces are unremarkable. The calvarium is unremarkable. The mastoid air cells and the visualized paranasal sinuses are clear. Impression: No evidence of intracranial hemorrhage, mass effect or midline shift. 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 Admission Request Was there a request for admission?: No Disposition Plan Disposition Plan: other (specify) (Patient signout to the restaurant shift leader provider. ) Discharge Plan Prescriptions/Referrals Prescriptions/Med Rec: No Action naproxen 500 mg tablet 500 mg PO BID PRN (Reason: pain) Qty: 30 0RF ondansetron 4 mg tablet,disintegrating 4 mg PO Q8H PRN (Reason: nausea and vomiting) Qty: 30 0RF cyclobenzaprine 10 mg tablet 10 mg PO HS Qty: 10 0RF Referrals: Jack Muller MD [Primary Care Provider] - In 1 week Problem List Clinical Impression: Hypokalemia, Hypertensive urgency, Sinus tachycardia Patient/Caregiver Discharge Instructions Print Language: Ukrainian
--- NOTE | 2024-09-21 16:06 | EKG_ITS ---
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
[2024-09-21 16:12] LABS: Basophils # (Auto) 0.1 Thou/mm3 (0.0-0.2); Basophils % (Auto) 1 % (0-2.5); Eosinophils # (Auto) 0.1 Thou/mm3 (0.0-0.5); Eosinophils % (Auto) 1 % (0-10); Hematocrit 39.4 % (36.0-46.0); Hemoglobin 14.5 g/dL (12.0-16.0); Immature Granulocytes % (Auto) 0 % (0-0); Immature Granulocytes Auto 0.02 Thou/mm3 (0.00-0.00); Lymphocytes # (Auto) 4.8 Thou/mm3 (1.0-4.8); Lymphocytes % (Auto) 41 % (10-50); Mean Corpuscular HGB Conc 36.8 g/dl (31.0-37.0); Mean Corpuscular Hemoglobin 32.4 pg (25.0-35.0); Mean Corpuscular Volume 88 fL (80-100); Monocytes # (Auto) 0.8 Thou/mm3 (0.0-0.8); Monocytes % (Auto) 7 % (0-12); Neutrophils # (Auto) 5.8 Thou/mm3 (1.8-7.7); Neutrophils % (Auto) 50 % (37-80); Nucleated Red Blood Cell % 0 /100 WBC (0); Platelet Count 265 Thou/mm3 (140-440); RDW Standard Deviation 39.3 fL (36.4-46.3); Red Blood Count 4.47 Miln/mm3 (4.00-5.20); White Blood Count 11.6 Thou/mm3 (3.6-11.0)
[2024-09-21] MEDS: SODIUM CHLORIDE 0.9% 1000 ML 1,000 ML 999 ML IV (16:16)
[2024-09-21 16:22] LABS: Partial Thromboplastin Time 27.3 Seconds (22.0-36.0); Prothrombin Time 10.8 Seconds (9.0-12.2)
[2024-09-21 16:29] LABS: Alanine Aminotransferase 16 U/L (10-49); Albumin/Globulin Ratio 1.6 (1.2-2.2); Alcohol, Blood Medical < 3.0 mg/dL (0-10.0); Alkaline Phosphatase 73 U/L (46-116); Anion Gap 10 (7-16); Aspartate Amino Transferase 22 U/L (0-34); BUN/Creatinine Ratio 10 Ratio (12-20); Bilirubin,Total 0.4 mg/dL (0.3-1.2); Blood Urea Nitrogen 8 mg/dL (9-23); Calcium 9.9 mg/dL (8.3-10.6); Calcium (Corrected) 9.9 mg/dL (8.5-10.1); Carbon Dioxide 27.6 mMol/L (20.0-31.0); Chloride 93 mMol/L (98-107); Creatinine (Component) 0.8 mg/dL (0.6-1.3); Estimated Creatinine Clearance 74.1 mL/min (>60); Globulin 3.2 gm/dL (2.3-3.5); Glucose 129 mg/dL (74-106); Magnesium 1.9 mg/dL (1.6-2.6); Osmolality,Calculated 262 (275-295); Sodium 131 mMol/L (136-145); Total Protein 8.2 gm/dL (5.7-8.2); Troponin I < 0.002 ng/mL (0.0-0.045); eGFR > 60 See Note
[2024-09-21 16:31] LABS: Potassium 2.5 mMol/L (3.4-5.1)
[2024-09-21 16:32] LABS: B-Type Natriuretic Peptide 35 pg/mL (0-100)
--- NOTE | 2024-09-21 16:36 | PRELIM_ITS ---
CT scan of the head without intravenous contrast (axial sections with sagittal and coronal reformats). September 21, 2024 1517 hours Clinical History: headache Findings: No evidence of intracranial hemorrhage, mass effect or midline shift. The ventricles and CSF spaces are unremarkable. The calvarium is unremarkable. The mastoid air cells and the visualized paranasal sinuses are clear. Impression: No evidence of intracranial hemorrhage, mass effect or midline shift. Report Electronically Signed By: González Smith 09/21/2024 4:36:15 PM [EST]
[2024-09-21] MEDS: POTASSIUM CHLORIDE 10% 20 MEQ/15 ML UDC 40 MEQ PO ×2 (16:40→18:24)
[2024-09-21] MEDS: ONDANSETRON INJ 2 MG/ML INJ 2 ML 4 MG IV (16:42)
[2024-09-21] MEDS: MORPHINE SULF INJ 10 MG/ML VIAL 3 MG IVP (16:42)
[2024-09-21] MEDS: POTASSIUM CHL 10 mEq IVPB 100 ML 100 MEQ IV ×2 (16:52→18:32)
[2024-09-21 17:12] LABS: Amphetamine/Methamp Scrn,U Negative (Negative); Barbiturate Screen,Urine Negative (Negative); Benzodiazepines Screen,Urine Negative (Negative); Benzoylecgonine Screen, Ur Negative (Negative); Fentanyl Screen,Urine Negative (Negative); Opiate Screen,Urine Negative (Negative); THC Screen,Urine Negative (Negative)
[2024-09-21] MEDS: ACETAMINOPHEN w/COD 300-30 TABLET 2 TAB PO (18:33)
[2024-09-21] MEDS: METOPROLOL TARTRATE 25 MG TABLET PO (18:33)
[2024-09-21 18:41] LABS: Potassium 3.9 mMol/L (3.4-5.1); Troponin I < 0.020 ng/mL (0.0-0.045)
--- NOTE | 2024-09-21 19:15 | PD.EDADDENDU ---
Emergency Room Addendum Addendum Narrative: I took over the care from Dr. ALVARADO at 6 PM on 09/21/2024, see her notes for complete H&P and ED course. I reviewed all diagnostic test results. At this point, diagnoses include hypertensive urgency, severe headache, hypokalemia. Treatment from me included oral metoprolol 25 mg, two Tylenol #3, and oral KCl 40 mEq. Significant improvement noted. Prescribed metoprolol for home and recommended more outpatient care and workup. Based on my best medical judgment, made decision no further evaluation or treatment indicated at this time. Patient understands and agrees to the discharge instructions customized and printed, see below. Discharge Instructions from Dr. Pedersen printed for you: 1. After extensive evaluation, there is no life-threatening condition. Such as stroke or brain tumor or heart attack. 2. Take metoprolol ER 50 mg every morning and every night. Will lower your BP and slow your heart rate, you will live longer. 3. Tylenol with codeine for severe headache. 4. See a private doctor on 09/20/2024 for recheck and further care. Ask to review all test results and official radiology reports, to make sure you receive all necessary follow-ups and monitoring, including repeating potassium level which was low today. 5. Seek immediate medical care with worsening or with any concerns. Instrucciones de tony del Dr. Pedersen impresas para usted: 1. Despu?s de karsten evaluaci?n exhaustiva, no hay ninguna afecci?n que ponga en peligro lopez adyran, judson un derrame cerebral, un tumor cerebral o un ataque card?aco. 2. [place] metoprolol ER 50 mg todas las ma?anas y todas las noches. [place] reducir? lopez presi?n arterial y disminuir? lopez frecuencia card?satya, lo que le permitir? vivir m?s tiempo. 3. Tylenol con code?na para el dolor de fidencio intenso. 4. Visite a un m?dico privado el 01/16/2025 para que lo revisen nuevamente y le brinden m?s atenci?n. Pida que revisen todos los resultados de las pruebas y los informes radiol?gicos oficiales para asegurarse de recibir todos los controles y monitoreos necesarios, incluida la repetici?n del nivel de potasio, que hoy fue bajo. 5. Busque atenci?n m?dica inmediata si empeora o si tiene alguna inquietud. Adalid Pedersen MD
== END 2024-09-21 19:35 | disposition home or self-care (01) ==
PROVIDERS: Emergency Medicine; Nurse Practitioner Primary Care; Emergency Provider Emergency Medicine; PCP Family Medicine
DX: E87.6 Hypokalemia (principal); I16.0 Hypertensive urgency; R00.0 Tachycardia, unspecified; I10 Essential (primary) hypertension
CPT/HCPCS: 36415; 70450; 71046; 80053; 80307; 80320; 83735; 83880; 84132; 84484; 85025; 85610; 85730; 93005; 96361; 96365; 96366; 96375; 99284; J2270; J2405; J3480; J7030; A9270; G0480

== ENCOUNTER 2024-10-05 12:24 | Emergency (ER) | payer MEDICAID, SELFPAY ==
[2024-10-05 12:39] VITALS: BP 177/95; PULSE 73; RESP 18; TEMP 37.1; O2SAT 100; BMI 26.2
--- NOTE | 2024-10-05 12:55 | PD.EDADULT ---
ED General RME/HPI General Chief complaint: General Adult/Misc Complain Stated complaint: high blood pressure, dizziness Time Seen by Provider: 10/05/24 12:30 Source: patient Arrival date/time: 10/05/24 12:24 This is a 53-year-old female who presents to the emergency department with complaints of possible elevation of blood pressure. Patient reports she experiences many tension headaches and stress that elevates her blood pressure. She is currently on metoprolol 50 mg twice daily and hydrochlorothiazide 25 mg. She has not skipped a dose. She does report she was visiting her mother at the care home when she began to feel a baeza she checked her blood pressure and noticed it was elevated prompting her ED visit today. Denies chest pain, dyspnea. Mode of arrival: ambulatory Related Data Previous Rx's ?Medication ?Instructions ?Recorded naproxen 500 mg tablet 500 mg PO BID PRN pain #30 tabs 06/06/23 ondansetron 4 mg disintegrating 4 mg PO Q8H PRN nausea and 06/06/23 tablet vomiting #30 tabs cyclobenzaprine 10 mg tablet 10 mg PO HS #10 tabs 07/29/24 acetaminophen 300 mg-codeine 30 mg 2 tab PO Q8H PRN pain #10 tabs 09/21/24 tablet metoprolol succinate 50 mg 50 mg PO BID #60 tabs 09/21/24 tablet,extended release 24 hr amlodipine 5 mg tablet (Norvasc) 5 mg PO QDAY #30 tabs 10/05/24 Allergies Allergy/AdvReac Type Severity Reaction Status Date / Time No Known Allergies Allergy Verified 10/05/24 12:28 Review of Systems Review of Systems Systems Reviewed: All systems reviewed, normal except as documented Narrative Review of Systems: Gen: No fever, no chills, no weight loss EYES: No discharge, no visual changes, no pain HEENT: No ear pain, no congestion, no sore throat PULM: No shortness of breath, no cough, no congestion CV: No chest pain, no dyspnea on exertion, no palpitations GI: No nausea, no vomiting, no diarrhea, no pain, no constipation : No frequency, no urgency, no dysuria Musc/skel: No joint pain, no back pain Skin: No rash Psyc: No hallucinations, no depression Heme/Lymph: No easy bleeding or bruising tendencies Neuro: No weakness, no headache ED Exam Narrative Physical exam: General: Sittiing in Exam table in no acute distress, answering questions appropriately HENT: normocephalic, atraumatic, EOMI, PERRLA, moist mucous membranes Chest: chest wall is nontender Cardiac: regular rate and rhythm, normal S1 and S2, no murmurs, rubs, or gallops, capillary refill ?2 seconds Pulmonary: clear to auscultation bilaterally, no wheezing, crackles, or rhonchi Abdominal: active bowel sounds, soft, nontender, nondistended Neuro: A&OX3, CN II-XII intact, sensation grossly intact bilaterally in UE and LE. Skin: no rashes, no ecchymosis Ext: no lower extremity edema Course Quality Measures none Vital Signs Vital signs: Vital Signs Temperature 98.8 F 10/05/24 12:39 Pulse Rate 73 10/05/24 12:39 Respiratory Rate 18 10/05/24 12:39 Blood Pressure 177/95 H 10/05/24 12:39 Pulse Oximetry (%) 100 10/05/24 12:39 Oxygen Delivery Method Room Air 10/05/24 12:39 [facility] Patient data External records reviewed:: [facility] previous records Clinical information provided by:: patient Social determinants that could affect healthcare access:: none Patient has the following chronic illnesses:: Hypertension How is presenting disease/condition affected by chronic disease/condition?: exacerbated by Evaluation data The following diagnostics were reviewed and interpreted by me:: other (specify) Lab and/or radiology exams considered but not ordered:: No Interpretation Summary: No Medications Medications considered but not ordered:: No Medication administrations:: no Consultations Consultation(s) initiated? (list below): No Diagnosis Differential Diagnosis ED Complaint MDM: Stress-induced. HTN-uncontrolled Most likely diagnosis given after review of the tests above:: Stress-induced. HTN-uncontrolled Admission Indicated Admission indicated?: not indicated Explain why admission is indicated or not indicated:: no indicated at Admission Request Was there a request for admission?: No Disposition Plan Disposition Plan: Discharge Discharge Attestation Discharge Attestation: The patient and all family members were given an opportunity to ask questions and understood the discharge instructions. Discharge instructions specifically effects, indications for sooner follow up or return to the emergency department, and the expected course of current diagnosis. Patient condition: Stable Medical Decision Making MDM Narrative MDM Narrative: 53-year-old male history of stress-induced tension headaches, hypertension here with complaints of elevated BP. Patient did take her blood pressure medications. Advised patient most likely her blood pressure, creases with with stress. Advised to start Norvasc continue all medications follow-up with her doctor Behavioral health advise or anxiety or depression medication by PCP. Spoke with patient in great detail states she will speak with her PCP regards the issue. ER precautions given Differential Diagnosis Differential Diagnosis: Stress-induced. HTN-uncontrolled Discharge Plan Plan Patient Disposition: HOME (Self Care) Patient condition on transfer: Stable Prescriptions/Referrals Prescriptions/Med Rec: New amlodipine [Norvasc] 5 mg tablet 5 mg PO QDAY Qty: 30 0RF No Action naproxen 500 mg tablet 500 mg PO BID PRN (Reason: pain) Qty: 30 0RF ondansetron 4 mg tablet,disintegrating 4 mg PO Q8H PRN (Reason: nausea and vomiting) Qty: 30 0RF cyclobenzaprine 10 mg tablet 10 mg PO HS Qty: 10 0RF metoprolol succinate 50 mg tablet extended release 24 hr 50 mg PO BID Qty: 60 0RF acetaminophen-codeine 300-30 mg tablet 2 tab PO Q8H MDD 6 PRN (Reason: pain) Qty: 10 0RF Rx Instructions: For severe migraine headache! Problem List Clinical Impression: Hypertension Patient/Caregiver Discharge Instructions Discharge Activity: activity as tolerated Education Materials: Controlling High Blood Pressure, Blood Pressure Check Steps Additional Instructions: Please continue all your medications. Please start Norvasc 5 mg every day. Make an appointment with your doctor Monday for follow-up care. Return to the emergency department this any worsening symptoms urgent condition. Print Language: Welsh Stand Alone Forms: Cassidy Award Info., Patient Portal Info Letter PA/SHIP RIGGER APPRENTICE Supervising Physician PA/SHIP RIGGER APPRENTICE Supervising Physician: .dr avalos
== END 2024-10-05 14:00 | disposition home or self-care (01) ==
LOC: SERX 13:15
PROVIDERS: Emergency Provider Emergency Medicine; PCP Nurse Practitioner Family
DX: I10 Essential (primary) hypertension (principal)
CPT/HCPCS: 99281

== ENCOUNTER 2025-03-16 08:15 | Emergency (ER) | payer MEDICAID, SELFPAY ==
[2025-03-16 08:31] VITALS: BP 170/91; BP 170/97; PULSE 72; RESP 18; TEMP 36.7; O2SAT 97
--- NOTE | 2025-03-16 08:49 | PD.EDRME ---
Rapid Medical Screening Exam RME Arrival date/time: 03/16/25 08:15 Chief Complaint: Headache Time Seen by Provider: 03/16/25 08:33 Vital signs: Vital Signs Temperature 98.0 F 03/16/25 08:31 Pulse Rate 72 03/16/25 08:31 Respiratory Rate 18 03/16/25 08:31 Blood Pressure 170/91 H 03/16/25 08:31 Pulse Oximetry (%) 97 03/16/25 08:31 Oxygen Delivery Method Room Air 03/16/25 08:31 RME Narrative: 54-year-old female with history of hypertensive urgency. Has a pending appointment to cardiology. For the last 2 days has been having headache worse than she has had before. Yesterday began with pain in her back that radiates to her chest. Thinks it is her heart. No history of CVA or heart attack. On losartan 50, amlodipine 5, propranolol 20 twice a day. I have done the initial assessment on the patient and put in orders that are deemed appropriate. Care of the patient will be resumed by different provider.
--- NOTE | 2025-03-16 08:51 | EKG_ITS ---
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1970 Requested By: Ana Garcia Order Number: [id number] Reading MD: Ana Garcia Measurements Intervals [place] Rate: 67 P: 0 [place]: 133 QRS: 17 QRSD: 87 T: 13 QT: 381 QTc: 404 Interpretive Statements SINUS RHYTHM LOW QRS VOLTAGE IN PRECORDIAL LEADS [QRS DEFLECTION < 1.0 mV IN CHEST LEADS] POSSIBLE ANTERIOR MYOCARDIAL INFARCTION , PROBABLY OLD [30 ms Q WAVE IN V3/V4, OR R < 0.2 mV IN V4] Compared to ECG 09/21/2024 16:13:06 Low QRS voltage now present Myocardial infarct finding now present Sinus tachycardia no longer present T-wave abnormality no longer present /store/S0/[id number].pdf
--- NOTE | 2025-03-16 08:52 | XR_ITS ---
Examination: CT brain head without contrast. 2-D sagittal coronal reconstructions Date and time of exam:March 16, 2025, 0904 hrs. Indications: Left-sided headache beginning 3 days ago. CTDI: vol (mGy):45.1. DLP: (mGycm):889 Technique: Multiple CT axial sections of the brain have been obtained, 5 mm slice thickness. Contrast has not been administered. 2-D sagittal, coronal reconstructions have been obtained Low dose protocols were performed. One or more of the following dose reduction techniques were used; automated exposure control, adjustment of the mA and/or KV according to patient size, use of iterative reconstruction technique. Findings: No significant ventricular enlargement. Intra-axial or extra-axial hemorrhage density is not seen. No mass effect or midline shift Basal cisterns are not remarkable. Fourth ventricle is midline. Cranial vault intact. Impression: Negative for acute hemorrhage, mass effect or midline shift
--- NOTE | 2025-03-16 08:53 | XR_ITS ---
Examination: PA lateral chest 2 views. Technique: Upright PA lateral chest 2 views. Date and time: March 16, 2025, 0919 hrs., Comparison September 21, 2024. Indications: Chest pain cardiac palpitations today. Findings: Minor prominence left ventricle. No pneumonia or pulmonary edema. The osseous structures are intact. Impression: No pneumonia or pulmonary edema.
[2025-03-16 09:24] LABS: Collection Type, Urine Clean Catch; Squamous Epithelial Cell,Urine 0 /hpf (0-5)
[2025-03-16 09:27] LABS: Basophils # (Auto) 0.1 Thou/mm3 (0.0-0.2); Basophils % (Auto) 1 % (0-2.5); Eosinophils # (Auto) 0.1 Thou/mm3 (0.0-0.5); Eosinophils % (Auto) 1 % (0-10); Hematocrit 39.1 % (36.0-46.0); Hemoglobin 13.3 g/dL (12.0-16.0); Immature Granulocytes Auto 0.01 Thou/mm3 (0.00-0.00); Lymphocytes # (Auto) 2.1 Thou/mm3 (1.0-4.8); Lymphocytes % (Auto) 33 % (10-50); Mean Corpuscular HGB Conc 34.0 g/dl (31.0-37.0); Mean Corpuscular Hemoglobin 32.6 pg (25.0-35.0); Mean Corpuscular Volume 96 fL (80-100); Monocytes # (Auto) 0.4 Thou/mm3 (0.0-0.8); Monocytes % (Auto) 6 % (0-12); Neutrophils # (Auto) 3.6 Thou/mm3 (1.8-7.7); Neutrophils % (Auto) 58 % (37-80); Nucleated Red Blood Cell # 0.00 Thou/mm3 (0.00-0.00); Nucleated Red Blood Cell % 0 /100 WBC (0); Platelet Count 229 Thou/mm3 (140-440); RDW Standard Deviation 41.5 fL (36.4-46.3); Red Blood Count 4.08 Miln/mm3 (4.00-5.20); White Blood Count 6.3 Thou/mm3 (3.6-11.0)
[2025-03-16 09:34] LABS: Bilirubin,Urine Negative (Negative); Blood,Urine Negative (Negative); Clarity,Urine Clear (Clear/Hazy); Color,Urine Colorless (Lt Yel-Yel); Glucose, Urine Negative (Negative); Ketones,Urine Negative (Negative); Leukocyte Esterase,Urine Negative (Negative); Nitrite,Urine Negative (Negative); PH,Urine 7.0 (5.0-7.0); Protein,Urine Negative (Neg - Trace); RBC,Urine < 1 /hpf (0-3); Specific Gravity,Urine 1.004 (1.001-1.035); Urobilinogen,Urine Negative mg/dL (0.0-1.0); WBC,Urine < 1 /hpf (0-5)
[2025-03-16 09:43] LABS: B-Type Natriuretic Peptide 69 pg/mL (0-100)
[2025-03-16 09:45] LABS: Alanine Aminotransferase 18 U/L (10-49); Albumin, Serum 4.6 gm/dL (3.5-5.0); Albumin/Globulin Ratio 1.6 (1.2-2.2); Alkaline Phosphatase 75 U/L (46-116); Anion Gap 9 (7-16); Aspartate Amino Transferase 26 U/L (0-34); BUN/Creatinine Ratio 10 Ratio (12-20); Bilirubin,Total 0.7 mg/dL (0.3-1.2); Blood Urea Nitrogen 7 mg/dL (9-23); Calcium 10.1 mg/dL (8.3-10.6); Calcium (Corrected) 10.1 mg/dL (8.5-10.1); Carbon Dioxide 27.2 mMol/L (20.0-31.0); Chloride 106 mMol/L (98-107); Creatinine (Component) 0.7 mg/dL (0.6-1.3); Globulin 2.9 gm/dL (2.3-3.5); Glucose 97 mg/dL (74-106); Osmolality,Calculated 281 (275-295); Potassium 4.0 mMol/L (3.4-5.1); Sodium 142 mMol/L (136-145); Total Protein 7.5 gm/dL (5.7-8.2); Troponin I < 0.002 ng/mL (0.0-0.045); eGFR > 60 See Note
[2025-03-16 09:54] VITALS: BP 160/87; PULSE 66; RESP 18; TEMP 37.1; O2SAT 98
--- NOTE | 2025-03-16 09:58 | PC.NURSE ---
pt came in with c/o headache, body pain and high bp x 3 days. pt moving all extremities equally and without difficulty. no reports of n/v. call light with in reach.
[2025-03-16 10:04] LABS: Amphetamine/Methamp Scrn,U Negative (Negative); Barbiturate Screen,Urine Negative (Negative); Benzodiazepines Screen,Urine Negative (Negative); Benzoylecgonine Screen, Ur Negative (Negative); Fentanyl Screen,Urine Negative (Negative); Opiate Screen,Urine Negative (Negative); THC Screen,Urine Negative (Negative)
[2025-03-16 10:19] LABS: HCG,Qualitative Serum Negative
--- NOTE | 2025-03-16 10:24 | PD.EDHA ---
ED Headache RME/HPI General Chief Complaint: Headache Stated Complaint: HEADACHE; BP 165/105 Time Seen by Provider: 03/16/25 08:33 Arrival date/time: 03/16/25 08:15 Limitations: no limitations RME / HPI RME / HPI Narrative: 54-year-old female with history of hypertensive urgency. Has a pending appointment to cardiology. For the last 2 days has been having headache worse than she has had before. Yesterday began with pain in her back that radiates to her chest. Thinks it is her heart. No history of CVA or heart attack. On losartan 50, amlodipine 5, propranolol 20 twice a day. I have done the initial assessment on the patient and put in orders that are deemed appropriate. Care of the patient will be resumed by different provider. DR. CABRAL MAIN ED EVALUATION: 54 year old female with history of hypertension presents to the ED with a 2-day history of headache and upper back pain. The headache is described as dull that is located most to the bilateral temples, and rated as moderate. The upper back pain is also moderate in severity, described as aching and tense in sensation, and has not improved with home stretching. Denies associated fever, chills, chest pain, cough, shortness of breath, abdominal pain, nausea, vomiting, diarrhea, or urinary complaints. Related Data Home Medications ?Medication ?Instructions ?Recorded ?Confirmed losartan 50 mg tablet 50 mg PO QDAY 03/16/25 03/16/25 propranolol 20 mg tablet 20 mg PO BID 03/16/25 03/16/25 Previous Rx's ?Medication ?Instructions ?Recorded cyclobenzaprine 10 mg tablet 10 mg PO HS #10 tabs 07/29/24 acetaminophen 300 mg-codeine 30 mg 2 tab PO Q8H PRN pain #10 tabs 09/21/24 tablet metoprolol succinate 50 mg 50 mg PO BID #60 tabs 09/21/24 tablet,extended release 24 hr amlodipine 5 mg tablet (Norvasc) 5 mg PO QDAY #30 tabs 10/05/24 Allergies Allergy/AdvReac Type Severity Reaction Status Date / Time No Known Allergies Allergy Verified 03/16/25 08:18 Review of Systems Review of Systems Systems Reviewed: All systems reviewed, normal except as documented Past Medical History Past Medical History CARDIAC: Positive Cardiac Disorders (palpitations) and Hypertension; Negative Congestive Heart Failure RESPIRATORY: Negative Chronic Obstructive Pulmonary Disease (COPD) GENITOURINARY: Negative Renal Disease ENDOCRINE: Negative Diabetes Mellitus Type 1 or Diabetes Mellitus Type 2 Family History FAMILY HISTORY: Positive Family Cancer Social History SMOKING STATUS: Never smoker SUBSTANCE USE: does not use ED Exam General Limitations: Present no limitations General appearance: Present alert and in no apparent distress Head Head exam: Present atraumatic Eye Eye exam: Present normal appearance, PERRL and EOMI ENT ENT exam: Present normal exam, normal oropharynx and mucous membranes moist Neck Neck exam: Present normal inspection, full ROM and trachea midline Chest Chest inspection: Present normal inspection and symmetric chest wall rise Respiratory Respiratory exam: Present normal lung sounds bilaterally Cardiovascular Cardiovascular exam: Present regular rate, normal rhythm and normal heart sounds Abdominal Exam Abdominal exam: Present soft and normal bowel sounds Extremities Exam Extremities exam: Present normal inspection and full ROM Back Exam Back exam: Present normal inspection and full ROM Neurological Exam Neurological exam: Present alert, oriented X3 and CN II-XII intact Psychiatric Psychiatric exam: Present normal affect and normal mood Skin Skin exam: Present warm, dry, intact and normal color Course Quality Measures none Orders Category Date Time Status EKG (ED ONLY) *Do not use* NOW Care 03/16/25 08:[address] head/brain wo con Stat Exams 03/16/25 08:52 Completed EKG (ED Only) Stat Exams 03/16/25 08:51 Draft XR chest 2V Stat Exams 03/16/25 08:53 Completed BNP [B-Type Natriuretic Peptide] Stat Lab 03/16/25 09:18 Completed CBC Stat Lab 03/16/25 09:18 Completed CMP [Comprehensive Metabolic Panel] Stat Lab 03/16/25 09:18 Completed Drug Screen,Urine Stat Lab 03/16/25 09:00 Completed HCG,Qualitative Serum Stat Lab 03/16/25 09:18 Completed Troponin I Stat Lab 03/16/25 09:18 Completed UA [Urinalysis] Stat Lab 03/16/25 09:00 Completed Aspirin Med 03/16/25 08:53 Discontinued 325 mg PO X1 ONE Vital Signs Vital signs: Vital Signs Temperature 98.0 F 03/16/25 08:31 Pulse Rate 72 03/16/25 08:31 Respiratory Rate 18 03/16/25 08:31 Blood Pressure 170/91 H 03/16/25 08:31 Pulse Oximetry (%) 97 03/16/25 08:31 Oxygen Delivery Method Room Air 03/16/25 08:31 Pulse ox is 97% on room air which is adequate. Headache MDM Narrative MDM Narrative:: Nieves Burdick am scribing for and in the presence of Dr. Cabral. Patient data External records reviewed:: [facility] previous records (I reviewed ED visit on 10/05/2024 ) Clinical information provided by:: patient Social determinants that could affect healthcare access:: none Patient has the following chronic illnesses:: hypertension How is presenting disease/condition affected by chronic disease/condition?: exacerbated by Evaluation data The following diagnostics were reviewed and interpreted by me:: lab results, radiology exam(s) and EKG tracing(s) (03/16/2025 @ 08:46 AM. NSR, rate 67, low QRS voltage in precordial leads, no acute ischemic changes, no STEMI. ) Lab and/or radiology exams considered but not ordered:: None Interpretation Summary: Ordering Physician: Ana Garcia PA-C Date of Service: 03/16/25 Procedure(s): CT head/brain wo con Accession Number(s): [id number] cc: Ana Garcia PA-C; Massimo Pantoja MD; Sheila Perez~ Examination: CT brain head without contrast. 2-D sagittal coronal reconstructions Date and time of exam:March 16, 2025, 0904 hrs. Indications: Left-sided headache beginning 3 days ago. CTDI: vol (mGy):45.1. DLP: (mGycm):889 Technique: Multiple CT axial sections of the brain have been obtained, 5 mm slice thickness. Contrast has not been administered. 2-D sagittal, coronal reconstructions have been obtained Low dose protocols were performed. One or more of the following dose reduction techniques were used; automated exposure control, adjustment of the mA and/or KV according to patient size, use of iterative reconstruction technique. Findings: No significant ventricular enlargement. Intra-axial or extra-axial hemorrhage density is not seen. No mass effect or midline shift Basal cisterns are not remarkable. Fourth ventricle is midline. Cranial vault intact. Impression: Negative for acute hemorrhage, mass effect or midline shift Dictated By: Massimo Pantoja MD Signed By: <Electronically signed by Massimo Pantoja MD in [place]> 03/16/25 0958 Ordering Physician: Ana Garcia PA-C Date of Service: 03/16/25 Procedure(s): XR chest 2V Accession Number(s): [id number] cc: Ana Garcia PA-C; Massimo Pantoja MD; Sheila Perez~ Examination: PA lateral chest 2 views. Technique: Upright PA lateral chest 2 views. Date and time: March 16, 2025, 0919 hrs., Comparison September 21, 2024. Indications: Chest pain cardiac palpitations today. Findings: Minor prominence left ventricle. No pneumonia or pulmonary edema. The osseous structures are intact. Impression: No pneumonia or pulmonary edema. Dictated By: Massimo Pantoja MD Signed By: <Electronically signed by Massimo Pantoja MD in [place]> 03/16/25 1002 Medications / Prescriptions Medications or Prescriptions considered but not ordered:: None Medication administrations:: Medication Administration History Discontinued Medications Aspirin (Aspirin 325 Mg Tablet) 325 mg PO X1 ONE Stop: 03/16/25 08:54 Last Admin: 03/16/25 09:18 Dose: 325 mg Documented By: LP See above Consultations Consultation(s) initiated? (list below): No Diagnosis Differential diagnosis headache: migraine, tension headache, subarachnoid hemorrhage and headache Most likely diagnosis given after review of the tests above:: Headache MSK pain Hypertension Admission Indicated Admission indicated?: not indicated Admission Request Was there a request for admission?: No Disposition Plan Disposition Plan: Discharge Discharge Attestation Discharge Attestation: The patient and all family members were given an opportunity to ask questions and understood the discharge instructions. Discharge instructions specifically effects, indications for sooner follow up or return to the emergency department, and the expected course of current diagnosis. Patient condition: Stable Discharge Plan Plan Patient Disposition: HOME (Self Care) Prescriptions/Referrals Prescriptions/Med Rec: No Action amlodipine [Norvasc] 5 mg tablet 5 mg PO QDAY Qty: 30 0RF losartan 50 mg tablet 50 mg PO QDAY propranolol 20 mg tablet 20 mg PO BID cyclobenzaprine 10 mg tablet 10 mg PO HS Qty: 10 0RF metoprolol succinate 50 mg tablet extended release 24 hr 50 mg PO BID Qty: 60 0RF acetaminophen-codeine 300-30 mg tablet 2 tab PO Q8H MDD 6 PRN (Reason: pain) Qty: 10 0RF Rx Instructions: For severe migraine headache! Referrals: Sheila Perez FNP [Primary Care Provider] - In 1 week Problem List Clinical Impression: Headache, Musculoskeletal pain, Hypertension Patient/Caregiver Discharge Instructions Education Materials: Self-Care for Headaches, ED Hypertension, Established, ED Myalgias Additional Instructions: Follow-up with your primary care doctor in 3 to 5 days for recheck. 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 You can return to the emergency department sooner if symptoms worsen or if you notice any new, concerning issues. For pain, take both 1-2 Tylenol 500mg tablets every 6 hours AND 2 Advil Gel 200mg capsules every 6 hours. Print Language: Israeli Stand Alone Forms: [employer] Award Info., Patient Portal Info Letter
[2025-03-16 12:23] VITALS: BP 139/82; PULSE 60; RESP 16; TEMP 36.9; O2SAT 99
[2025-03-16 12:50] VITALS: BP 139/82; PULSE 63; RESP 18; O2SAT 99
== END 2025-03-16 12:50 | disposition home or self-care (01) ==
PROVIDERS: Emergency Provider Physician Assistant; PCP Nurse Practitioner Family
DX: R51.9 Headache, unspecified (principal); I10 Essential (primary) hypertension; M79.18 Myalgia, other site; R07.9 Chest pain, unspecified; R00.2 Palpitations; R94.31 Abnormal electrocardiogram [ECG] [EKG]
CPT/HCPCS: 36415; 70450; 71046; 80053; 80307; 81001; 83880; 84484; 84703; 85025; 93005; 99284; A9270

== ENCOUNTER 2025-06-29 09:44 | Emergency (ER) | payer MEDICAID, SELFPAY ==
[2025-06-29 09:45] VITALS: BMI 27.4
--- NOTE | 2025-06-29 09:48 | EKG_ITS ---
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
[2025-06-29 09:57] VITALS: BP 159/91; PULSE 94; RESP 17; TEMP 36.9; O2SAT 98
--- NOTE | 2025-06-29 10:32 | XR_ITS ---
EXAMINATION: PA lateral chest 2 views TECHNIQUE: Upright PA lateral chest 2 views Date and time: June 29, 2025, 1101 hours, comparison March 16, 2025 INDICATIONS: Shortness of breath coughing chest and back pain today. FINDINGS: Minor prominence left ventricle Accentuation basilar bronchovascular markings. No lobar pneumonia or pulmonary edema IMPRESSION: Mild basilar bronchitis pattern
--- NOTE | 2025-06-29 10:33 | EDNOTE_ITS ---
<Statement entered by Shirley Sullivan MD - 06/29/25 13:36> As co-signing physician, I was present and available for consult prn. I concur with the plan and care as documented by the midlevel provider. ED Back Injury Pain RME/HPI General Chief Complaint: Back Pain/Injury Stated Complaint: LOWER BACK PAIN RADIATING TO NECK X1 WEEK Time Seen by Provider: 06/29/25 09:52 Arrival date/time: 06/29/25 09:44 RME / HPI RME / HPI Narrative: 54-year-old female with past medical history of anxiety, palpitations, hypertension, chronic back pain, tension headaches who sees a therapist for her anxiety however she has not been compliant with the exercises and yoga which was recommended, who is presenting with an acute exacerbation of her chronic back and neck pain which radiates to her head worse with certain movements and feels tight in nature associated with intermittent palpitations and lightheadedness which has been ongoing for the past week. Patient states that she has had the symptoms in the past and has been evaluated here in the ER as well as by her primary doctor and even a manager cost was told that everything is okay. Pain is not exertional. 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 Denies any trauma, incontinence, numbness, tingling, weakness, shortness of breath, syncope, vomiting, vision changes. Past medical history: Patient saw manager cost about 1 month ago had a full cardiac workup including a myocardial perfusion scan, outpatient cardiac telemetry monitoring, echocardiogram which she states all results were normal Related Data Home Medications ?Medication ?Instructions ?Recorded ?Confirmed losartan 50 mg tablet 50 mg PO QDAY 03/16/2503/16 propranolol 20 mg tablet 20 mg PO BID 03/16/25 Previous Rx's ?Medication ?Instructions ?Recorded cyclobenzaprine 10 mg tablet 10 mg PO HS #10 tabs 07/17 10/08 acetaminophen 300 mg-codeine 30 mg 2 tab PO Q8H PRN pa in #10 tabs 09/21/24 tablet metoprolol succinate 50 mg 50 mg PO BID #60 tabs 09/21 tablet,extended release 24 hr amlodipine 5 mg tablet (Norvasc) 5 mg PO QDAY #30 tabs 10/05/24 cyclobenzaprine 10 mg tablet 10 mg PO TID #10 tabs hydroxyzine HCl 25 mg tablet 25 mg PO TID PRN anxiety #10 tabs 06/29/25 lidocaine 5 % topical patch 2 patch topical QDAY #15 e a 06/29/25 (Lidoderm) naproxen 500 mg tablet 500 mg PO BID PRN pain #14 t abs 06/29/25 Allergies Allergy/AdvReac Type Severity Reaction Status Date / Time No Known Allergies Allergy Verified 06/29/25 09:47 ED Exam Narrative Physical exam: Constitutional: Patient alert and oriented. Well appearing. No acute distress. Not toxic appearing. Head: Normocephalic, atraumatic. Eyes: Periorbital regions bilaterally normal to inspection. Conjunctiva clear bilaterally. Sclera anicteric bilaterally. Pupils equal, round, reactive to light bilaterally. Extraocular movements intact bilaterally. Mouth/Throat: Mucous membranes moist. No stridor or muffled voice. No trismus. Handling secretions without difficulty. Airway widely patent. Neck: Supple. Trachea midline. No JVD. No nuchal rigidity. Normal range of motion. Respiratory: Normal effort. No accessory muscle use or respiratory distress. Lungs clear to auscultation bilaterally without rhonchi, wheezes, or crackles. Cardiovascular: RRR. Normal S1/S2. No murmurs or rubs. Radial pulses intact bilaterally. Abdomen: Soft. Non-distended. Non-tender throughout. No pulsatile mass. No guarding or rebound. Negative Rodriguez?s sign. Negative McBurney?s point tenderness. Negative Rovsing?s. Back: No midline tenderness or step-offs. No CVA tenderness to palpation bilaterally. Positive parathoracic and paracervical tenderness to palpation bilaterally. Upper Extremities: No gross deformities. Lower Extremities: No gross deformities. No edema or calf tenderness. Neuro: Speech normal. No gross motor or sensory deficits to upper or lower extremities bilaterally. GCS 15. CN II?XII grossly intact. Deep tendon reflexes symmetric for upper and lower extremities bilaterally. Skin: Warm, dry, normal color. Psych: Normal affect. Cooperative. Normal insight. Course Quality Measures none Orders Category Date Time Status EKG (ED ONLY) *Do not use* NOW Care 06/29/25 09:48 Completed CXR2 [XR chest 2V] Stat Exams 06/29/25 10:32 Completed EKG (ED Only) Stat Exams 06/29/25 09:48 Draft CBC Stat Lab 06/29/25 10:38 Completed CMP [Comprehensive Metabolic Panel] Stat Lab 06/29/25 11:41 Completed TSH [Thyroid Stimulating Hormone] Stat Lab 06/29/25 11:41 Completed Troponin I Stat Lab 06/29/25 11:41 Completed Diazepam [Valium] Med 06/29/25 10:32 Discontinued 5 mg PO X1 ONE Ketorolac Inj [Toradol Inj] Med 06/29/25 10:32 Discontinued 30 mg IM X1 ONE Lidocaine 5% Patch Med 06/29/25 10:32 Discontinued 1 patch TOP X1 ONE Vital Signs Vital signs: Vital Signs Temperature 98.5 F 06/29/25 09:57 Pulse Rate 94 06/29/25 09:57 Respiratory Rate 17 06/29/25 09:57 Blood Pressure 159/91 H 06/29/25 09:57 Pulse Oximetry (%) 98 06/29/25 09:57 Oxygen Delivery Method Room Air 06/29/25 09:57 PROCEDURES: EKG Interpretation #1: Date of EK06/29/25 Time of EK:00 Rate: 81 Interpretation: Interpreted by me Additional EKG comment: No ST elevation, normal axis, nonspecific ST abnormalities noted in the inferior and lateral leads Back Pain / Injury MDM Narrative MDM Narrative:: MDM 54-year-old female with past medical history of anxiety, chronic back pain, tension headaches, palpitations presents to the ER complaining of an acute exacerbation of her symptoms for the past week. Patient states she has been under more stress than normal. Patient even had a full cardiac workup with a manager cost about 1 month ago which was unremarkable. Patient has been seen in the ER prior to this with full workup which was unremarkable. Patient has not been adherent to her exercise and yoga which was recommended by her therapist. EKG without acute ischemia or arrhythmia CBC unremarkable, CMP unremarkable, troponin undetectable, TSH within normal limits, chest x-ray was notable for mild basilar bronchitis however there is no focal consolidation or acute cardiopulmonary abnormality aside from this This patient presents with thoracic and cervical back and neck pain most consistent with musculoskeletal strain or spasm. Pain is localized without radiation, paresthesia, or weakness. No bowel or bladder incontinence. No acute neurologic deficits. Doubt cauda equina syndrome, spinal cord compression, infection, trauma, malignancy, dissection, or nephrolithiasis based on history, exam, and absence of red flag symptoms. Doubt renal colic, pyelonephritis, or obstructive uropathy?pain localized to lower back without flank radiation Advanced imaging (CT/MRI) considered but not indicated given absence of neurologic deficits or high-risk features. Patient presents with headache. Serious causes including intracranial hemorrhage, mass lesion with midline shift or herniation, ischemic stroke with focal deficits, meningitis/encephalitis, and giant cell arteritis were considered and are felt unlikely based on today?s history, exam, and overall presentation. Neurologic exam is non-focal. No meningismus is present. CT head was considered but not obtained, as the likelihood of acute findings is very low and the risks of unnecessary radiation outweigh the benefits. This was a shared decision with the patient, who expressed understanding and agreement with the plan to defer imaging. Patient's constellation of symptoms are likely financial foundations representative of an acute exacerbation of her chronic anxiety complicated by musculoskeletal back and neck pain with a tension headache Patient states that her palpitations were no significant ectopy noted additionally patient had recent outpatient cardiac telemetry workup which was unremarkable and her labs are without severe metabolic or electrolyte abnormality The patient is stable for discharge with outpatient follow-up recommended with their PCP in 1-2 days. Supportive treatment given, strict ER return precautions advised Patient data External records reviewed:: [facility] previous records Clinical information provided by:: patient Social determinants that could affect healthcare access:: none Patient has the following chronic illnesses:: As noted How is presenting disease/condition affected by chronic disease/condition?: exacerbated by Evaluation data The following diagnostics were reviewed and interpreted by me:: other (specify) Lab and/or radiology exams considered but not ordered:: Additional Labs and radiology considered, but not ordered as they were not clinically indicated at this time. Interpretation Summary: As noted Medications / Prescriptions Medications or Prescriptions considered but not ordered:: I ordered medications based on the patient?s clinical needs and assessment, as documented in the chart. For medications not prescribed, they were not indicated for the patient's current condition, and I determined they were unnecessary at this time to avoid potential risks or complications. Medication administrations:: Medication Administration History Discontinued Medications Diazepam (Diazepam 5 Mg Tablet) 5 mg PO X1 ONE Stop: 06/29/25 10:33 Last Admin: 06/29/25 10:47 Dose: 5 mg Documented By: Ketorolac Tromethamine (Ketorolac Inj 30 Mg/Ml Vial) 30 mg IM X1 ONE Stop: 06/29/25 10:33 Last Admin: 06/29/25 10:48 Dose: 30 mg Documented By: Lidocaine (Lidocaine 5% 1 Patch) 1 patch TOP X1 ONE Stop: 06/29/25 10:33 Last Admin: 06/29/25 10:48 Dose: 1 patch Documented By: As noted Consultations Consultation(s) initiated? (list below): Yes Diagnosis Most likely diagnosis given after review of the tests above:: As noted Admission Indicated Admission indicated?: not indicated Admission Request Was there a request for admission?: No Disposition Plan Disposition Plan: Discharge Discharge Attestation Discharge Attestation: The patient and all family members were given an opportunity to ask questions and understood the discharge instructions. Discharge instructions specifically effects, indications for sooner follow up or return to the emergency department, and the expected course of current diagnosis. Patient condition: Stable Discharge Plan Plan Patient Disposition: HOME (Self Care) Patient condition on transfer: Stable Prescriptions/Referrals Prescriptions/Med Rec: New cyclobenzaprine 10 mg tablet 10 mg PO TID Qty: 10 0RF lidocaine [Lidoderm] 5 % adhesive patch,medicated 2 patch topical QDAY Qty: 15 0RF Rx Instructions: leave on most painful area for up to 12 hrs naproxen 500 mg tablet 500 mg PO BID PRN (Reason: pain) Qty: 14 0RF Rx Instructions: take wtih food and 8 oz of water hydroxyzine HCl 25 mg tablet 25 mg PO TID PRN (Reason: anxiety) Qty: 10 0RF No Action amlodipine [Norvasc] 5 mg tablet 5 mg PO QDAY Qty: 30 0RF losartan 50 mg tablet 50 mg PO QDAY propranolol 20 mg tablet 20 mg PO BID cyclobenzaprine 10 mg tablet 10 mg PO HS Qty: 10 0RF metoprolol succinate 50 mg tablet extended release 24 hr 50 mg PO BID Qty: 60 0RF acetaminophen-codeine 300-30 mg tablet 2 tab PO Q8H MDD 6 PRN (Reason: pain) Qty: 10 0RF Rx Instructions: For severe migraine headache! Referrals: Sheila Perez FNP [Primary Care Provider] - In 1 week Problem List Clinical Impression: Thoracic back pain, Heart palpitations, Headache Patient/Caregiver Discharge Instructions Print Language: Turkmen Stand Alone Forms: Cassidy Award Info., Patient Portal Info Letter
[2025-06-29] MEDS: DIAZEPAM 5 MG TABLET PO (10:47)
[2025-06-29] MEDS: KETOROLAC INJ 30 MG/ML VIAL IM (10:48)
[2025-06-29] MEDS: LIDOCAINE 5% 1 PATCH TOP (10:48)
[2025-06-29 10:53] LABS: Basophils # (Auto) 0.0 Thou/mm3 (0.0-0.2); Basophils % (Auto) 1 % (0-2.5); Eosinophils # (Auto) 0.1 Thou/mm3 (0.0-0.5); Eosinophils % (Auto) 1 % (0-10); Hematocrit 38.1 % (36.0-46.0); Hemoglobin 13.0 g/dL (12.0-16.0); Immature Granulocytes Auto 0.01 Thou/mm3 (0.00-0.00); Lymphocytes # (Auto) 1.9 Thou/mm3 (1.0-4.8); Lymphocytes % (Auto) 32 % (10-50); Mean Corpuscular HGB Conc 34.1 g/dl (31.0-37.0); Mean Corpuscular Hemoglobin 32.2 pg (25.0-35.0); Mean Corpuscular Volume 94 fL (80-100); Monocytes # (Auto) 0.4 Thou/mm3 (0.0-0.8); Monocytes % (Auto) 7 % (0-12); Neutrophils # (Auto) 3.4 Thou/mm3 (1.8-7.7); Neutrophils % (Auto) 59 % (37-80); Nucleated Red Blood Cell # 0.00 Thou/mm3 (0.00-0.00); Nucleated Red Blood Cell % 0 /100 WBC (0); Platelet Count 213 Thou/mm3 (140-440); RDW Standard Deviation 42.4 fL (36.4-46.3); Red Blood Count 4.04 Miln/mm3 (4.00-5.20); White Blood Count 5.8 Thou/mm3 (3.6-11.0)
[2025-06-29 12:24] LABS: Alanine Aminotransferase 15 U/L (10-49); Albumin, Serum 4.8 gm/dL (3.5-5.0); Albumin/Globulin Ratio 1.5 (1.2-2.2); Alkaline Phosphatase 81 U/L (46-116); Anion Gap 9 (7-16); Aspartate Amino Transferase 21 U/L (0-34); BUN/Creatinine Ratio 11 Ratio (12-20); Bilirubin,Total 0.5 mg/dL (0.3-1.2); Blood Urea Nitrogen 8 mg/dL (9-23); Calcium 9.8 mg/dL (8.3-10.6); Calcium (Corrected) 9.8 mg/dL (8.5-10.1); Carbon Dioxide 28.7 mMol/L (20.0-31.0); Chloride 104 mMol/L (98-107); Creatinine (Component) 0.7 mg/dL (0.6-1.3); Estimated Creatinine Clearance 83.1 mL/min (>60); Globulin 3.3 gm/dL (2.3-3.5); Glucose 92 mg/dL (74-106); Osmolality,Calculated 281 (275-295); Potassium 4.4 mMol/L (3.4-5.1); Sodium 142 mMol/L (136-145); Thyroid Stimulating Hormone 0.67 uIU/mL (0.55-4.78); Total Protein 8.1 gm/dL (5.7-8.2); Troponin I < 0.002 ng/mL (0.0-0.045); eGFR > 60 See Note
== END 2025-06-29 12:44 | disposition home or self-care (01) ==
PROVIDERS: Physician Assistant; Emergency Provider Emergency Medicine; PCP Nurse Practitioner Family
DX: R51.9 Headache, unspecified (principal); R00.2 Palpitations; M54.6 Pain in thoracic spine; R94.31 Abnormal electrocardiogram [ECG] [EKG]; I10 Essential (primary) hypertension
CPT/HCPCS: 36415; 71046; 80053; 84443; 84484; 85025; 93005; 96372; 99283; J1885; J3490; A9270